=== PATIENT | female | born 1970 | race Caucasian/White ===

== ENCOUNTER 2023-06-18 13:23 | Emergency (ER) | payer OTHER, BC ==
[2023-06-18 13:47] VITALS: BP 138/84; PULSE 79; RESP 18; TEMP 97.7; BMI 22.3
== END 2023-06-18 15:00 | disposition home or self-care (01) ==
LOC: FER 13:23
DX: M25.552 Pain in left hip (principal); W19.XXXA Unspecified fall, initial encounter; Y93.01 Activity, walking, marching and hiking; Y92.009 Unspecified place in unspecified non-institutional (private) residence as the place of occurrence of the external cause
CPT/HCPCS: 73502-TC-LT-FY; 99283-25

== ENCOUNTER 2024-10-13 18:06 | Emergency (ER) | payer OTHER, BC ==
[2024-10-13 18:24] VITALS: BP 151/94; PULSE 90; RESP 18; TEMP 98.5; BMI 20.7
[2024-10-13 18:43] LABS: ABSOLUTE IMMATURE GRANULOCYTES 0.04 x10^3/uL (0.0-0.031); BASOPHILS # 0.06 x10^3/uL (0.01-0.08); EOSINOPHIL % 7.9 % (0.7-5.8); EOSINOPHILS # 0.58 x10^3/uL (0.04-0.36); MCHC 31.2 g/dl (32.2-35.5); MEAN CELL VOLUME 88.6 fl (79.4-94.8); MEAN PLT VOLUME 9.6 fl (9.4-12.3); MONOCYTE # 0.55 x10^3/uL (0.24-0.86); MONOCYTE % 7.5 % (4.7-12.5); RDW 13.2 % (12.3-16.6)
[2024-10-13 18:54] LABS: ALK PHOS 86.0 U/L (45-117); CO2 27.0 mmol/L (21-32); CREATININE 0.7 mg/dl (0.6-1.3); GLUCOSE,RANDOM 100.0 mg/dl (74-106); SGOT/AST 16.0 U/L (15-37); SGPT/ALT 17.0 U/L (7-52); TOT PROT 6.2 g/dl (6.4-8.2)
[2024-10-13 22:06] LABS: HIV INTERPRETATION NEGATIVE (NEGATIVE)
[2024-10-13 22:10] LABS: HCV DIAGNOSTIC IN-HOUSE W/RFLX NON-REACTIVE (NONREACTIVE)
== END 2024-10-13 23:47 | disposition home or self-care (01) ==
LOC: FER 18:06
DX: M96.841 Postprocedural hematoma of a musculoskeletal structure following other procedure (principal)
CPT/HCPCS: 36415; 72132-TC; 80053; 85025; 86803; 87389; 99285-25; Q9967